=== PATIENT | female | born 1975 | race Caucasian/White ===

== ENCOUNTER 2023-06-24 21:08 | Emergency (ER) | payer BC ==
[~2023-06-24] VITALS: Ht 162.6 cm; Wt 65.8 kg
[2023-06-24 21:18] VITALS: BP_SYST 128; PULSE 100; RESP 16; TEMP 98.7; O2SAT 100
[2023-06-24] MEDS ORDERED: IBUP-1969 PO (22:59)
[2023-06-24] MEDS ORDERED: VIS25 PO (22:59)
[2023-06-24 23:08] VITALS: BP_SYST 128; PULSE 100; RESP 16; TEMP 98.7; O2SAT 100
== END 2023-06-24 23:06 | disposition home or self-care (01) ==
LOC: SED 21:08
DX: R07.89 Other chest pain (principal); Z79.899 Other long term (current) drug therapy
CPT/HCPCS: 99283